=== PATIENT | male | born 1995 ===

== ENCOUNTER 2016-08-27 10:17 | Emergency (ER) | payer SELFPAY ==
[2016-08-27 10:24] VITALS: BP 143/100; PULSE 84; RESP 20; TEMP 99.1; O2SAT 98
[2016-08-27] MEDS ORDERED: TDAP Vaccine 0.5 mL Syr IM ONE (10:27)
[2016-08-27] MEDS ORDERED: Lidocaine 1% Inj (20ml) IJ ONE (10:27)
--- NOTE | 2016-08-27 10:30 | ED PDOC ---
Upper Extremity Pain/Injury Time Seen by Provider: 08/27/16 10:24 Chief Complaint (Nursing): Upper Extremity Problem/Injury Chief Complaint (Provider): laceration right arm History Per: Patient History/Exam Limitations: no limitations Onset/Duration Of Symptoms: Mins (prior to arrival ) Additional Complaint(s): Jasno Everett is a 20 year old mal, with no previous medical history, who presents to the ED for the evaluation of a laceration he sustained on a metal fence this morning. He denies any numbness or tingling. Unsure of last tetanus vaccination. PMD: none provided Past Medical History Reviewed: Historical Data, Nursing Documentation, Vital Signs Vital Signs: Last Vital Signs Temp 99.1 F 08/27/16 10:23 Pulse 84 08/27/16 10:23 Resp 20 08/27/16 10:23 BP 143/100 H 08/27/16 10:23 Pulse Ox 98 08/27/16 10:26 - Medical History PMH: No Chronic Diseases - Surgical History Surgical History: No Surg Hx - Family History Family History: States: Unknown Family Hx - Allergies Allergies/Adverse Reactions: Allergies Allergy/AdvReac Type Severity Reaction Status Date / Time No Known Allergies Allergy Verified 08/27/16 10:25 Review of Systems ROS Statement: Except As Marked, All Systems Reviewed And Found Negative Skin: Positive for: Other (laceration to the right forearm ) Neurological: Negative for: Numbness, Other (tingling ) Physical Exam - Reviewed Nursing Documentation Reviewed: Yes Vital Signs Reviewed: Yes - Physical Exam Appears: Positive for: Well, Non-toxic, No Acute Distress Cardiovascular/Chest: Positive for: Regular Rate, Rhythm Respiratory: Positive for: CNT, Normal Breath Sounds Extremity: Positive for: Normal ROM, Capillary Refill (< 2 seconds), Other (3 cm laceration to the right forearm ). Negative for: Deformity Neurologic/Psych: Positive for: Alert, Oriented. Negative for: Motor/Sensory Deficits - ECG O2 Sat by Pulse Oximetry: 98 (RA) Pulse Ox Interpretation: Normal Medical Decision Making Medical Decision Making: Initial Plan: * laceration repair * boostrix vaccine * lidocaine 1 % * reevaluation Scribe Attestation: Documented by Radha Elliott, acting as a scribe for Chapin Rincon MD. Provider Scribe Attestation: All medical record entries made by the Scribe were at my direction and personally dictated by me. I have reviewed the chart and agree that the record accurately reflects my personal performance of the history, physical exam, medical decision making, and the department course for this patient. I have also personally directed, reviewed, and agree with the discharge instructions and disposition. Disposition - Clinical Impression Clinical Impression: Laceration - Patient ED Disposition Is Patient to be Admitted: No Counseled Patient/Family Regarding: Diagnosis, Need For Followup - Disposition Referrals: [facility] [place] [facility] [Outside] Disposition: Routine/Home Disposition Time: 10:47 Condition: FAIR Instructions: Laceration (ED), Care For Your Stitches (ED) Laceration - Laceration Repair right forearm Wound Length (In cm): 3 Description Of Wound: Linear Wound Cleansed With: Sterile Saline Anesthesia: Lidocaine 1% Wound Examination: Irrigated With Saline, No FB With Wound Exploration, No Tendon Injury With Wound Exploration Wound Closure: Suture (x 6) Suture Technique And Material Used: Interrupted, Nylon (4-0) Wound Complexity: Simple
== END 2016-08-27 11:17 | disposition home or self-care (01) ==
LOC: H.ER 10:17
DX: S51.811A Laceration without foreign body of right forearm, initial encounter (principal); W26.8XXA Contact with other sharp object(s), not elsewhere classified, initial encounter; Y92.89 Other specified places as the place of occurrence of the external cause